=== PATIENT | female | born 1945 | race Caucasian/White ===

== ENCOUNTER 2022-12-16 00:30 | Emergency (ER) | payer MEDICARE, OTHER, SELFPAY ==
[2022-12-16 00:44] VITALS: BP 133/78; PULSE 87; RESP 18; TEMP 38.2; O2SAT 98; BMI 21.0
--- NOTE | 2022-12-16 00:53 | DI.RAD.S_ITS ---
PROCEDURE: XR HAND LT MIN 3V INDICATIONS: Fall; Possible dislocation/fx of Left hand TECHNIQUE: 3 views of the hand(s) acquired. COMPARISON: None. FINDINGS: Bones: There is a dislocation of the proximal interphalangeal joint of the 3rd finger, with overlapping of the phalanges. There is a potential avulsion fracture seen along the palmar aspect of the distal portion of the proximal phalanx of the 3rd finger. There is a moderately displaced, angulated fracture through the shaft of the 5th metacarpal. Degenerative changes are seen throughout, which are most prominent involving the 1st carpometacarpal joint. Milder degenerative changes are seen elsewhere. Soft tissues: No suspicious soft tissue calcifications. IMPRESSION: 3rd finger dislocation, with an apparent associated avulsion fracture fragment seen. Moderately displaced 5th metacarpal fracture. Dictated by: Julien Pratt M.D. on 12/16/2022 at 0:15 Approved by: Julien Pratt M.D. on 12/16/2022 at 0:16
--- NOTE | 2022-12-16 01:32 | ED_ITS ---
HPI - General Adult General Chief complaint: Extremity Injury, Upper Stated complaint: finger injury Time Seen by Provider: 12/16/22 01:24 Source: patient and family Mode of arrival: Ambulatory History of Present Illness HPI narrative: Patient is a 77-year-old female who is here for evaluation of injuries to her left hand and left finger. This occurred when she slipped and fell while getting out of her trailer. She reports no other injuries from the event. She stated that her left middle finger was very deformed and she pulled on it prior to coming to the ER but is still having discomfort. Related Data Allergies Allergy/AdvReac Type Severity Reaction Status Date / Time No Known Drug Allergies Allergy Verified 12/16/22 00:44 Review of Systems Constitutional Constitutional: Reports system reviewed and no additional complaints, except as documented Musculoskeletal Musculoskeletal: Reports system reviewed and no additional complaints, except as documented Integumentary/Breasts Skin/Breast: Reports system reviewed and no additional complaints, except as documented Neurologic Neurologic: Reports system reviewed and no additional complaints, except as documented Patient History Social History Smoking Status: Never smoker Smoking Status: Never smoker Substance Use Type: does not use Exam Initial Vital Signs Initial Vital Signs: Vital Signs Temperature 100.7 F H 12/16/22 00:44 Pulse Rate 87 12/16/22 00:44 Respiratory Rate 18 12/16/22 00:44 Blood Pressure 133/78 12/16/22 00:44 Pulse Oximetry 98 12/16/22 00:44 Oxygen Delivery Method Room Air 12/16/22 00:44 Cardio Pulses: radial pulses present on the left Skin General: no rashes or lesions noted and elasticity normal Neuro General: patient alert and patient awake Sensory Exam: no sensory deficits noted Extrem Other: Bruising to the dorsum of the left hand on the ulnar aspect. Obvious deformity to the left middle finger PIP joint. Procedures Nerve Block Nerve Block 1: Time out performed: Yes Local Anesthetic: lidocaine 1% Amount of anesthesia used (mL): 3 Side: left Nerve Blocks: digital Procedure Successful: Yes Patient Tolerated Procedure: Well Complications: none Orthopedic Joint Reduction Joint #1: Time Out Performed: Yes Side: left Joint Reduction Location: finger Analgesia: nerve block Technique used: direct manipulation Post-reduction neuro exam: intact Post-reduction vascular: intact Post Reduction X-Ray Obtained: Yes Post Reduction X-Ray Results: reduced Splint Applied: Yes Patient Tolerated Procedure: Well Orthopedic Splinting/Casting Injury #1: Side: left Upper Extremity Injury Location: hand and finger Upper Extremity Immobilizer: ulnar gutter Post splinting neuro exam: intact Post splinting vascular exam: intact Placed by: Provider Course Orders Ordered: ED Orders 12/16/22 00:53 XR hand LT min 3V Stat 12/16/22 01:42 XR hand LT min 3V Stat Vital Signs Vital signs: Vital Signs - 8 hr 12/16/22 00:44 Temperature 100.7 F H Pulse Rate 87 Respiratory Rate 18 Blood Pressure 133/78 Pulse Oximetry 98 Oxygen Delivery Method Room Air Medical Decision Making Imaging Data post reduction: Radiologist's Impression: PROCEDURE:? XR HAND LT MIN 3V ? INDICATIONS:? reduction L middle PIP dislocation ? TECHNIQUE:? 3 views of the hand(s) acquired.? ? COMPARISON:? [facility], CR, XR HAND LT MIN 3V, 12/16/2022, 0:55. ? FINDINGS:? ? Bones:? The proximal interphalangeal joint dislocation of the 3rd finger has now been relocated.? Along the dorsal aspect the distal portion of the proximal portion of the distal phalanx, there is a 1 mm avulsion fracture fragment seen. ? There is again seen a moderately displaced fracture of the 5th metacarpal shaft. ? Degenerative changes are seen throughout, which are most prominent involving the 1st carpometacarpal joint.? Milder degenerative changes are seen elsewhere.? ? Soft tissues:? Soft tissue swelling is seen. ? ? IMPRESSION:? 3rd finger relocation, with a 1 mm avulsion fracture fragment seen.? ? Stable moderately displaced fracture of the 5th metacarpal. Extremity x-ray #2: Radiologist's Impression: PROCEDURE:? XR HAND LT MIN 3V ? INDICATIONS:? Fall; Possible dislocation/fx of Left hand ? TECHNIQUE:? 3 views of the hand(s) acquired.? ? COMPARISON:? None. ? FINDINGS:? ? Bones:? There is a dislocation of the proximal interphalangeal joint of the 3rd finger, with overlapping of the phalanges.? There is a potential avulsion fracture seen along the palmar aspect of the distal portion of the proximal phalanx of the 3rd finger. ? There is a moderately displaced, angulated fracture through the shaft of the 5th metacarpal. ? Degenerative changes are seen throughout, which are most prominent involving the 1st carpometacarpal joint.? Milder degenerative changes are seen elsewhere.? ? Soft tissues:? No suspicious soft tissue calcifications.? ? ? IMPRESSION:? 3rd finger dislocation, with an apparent associated avulsion fracture fragment seen. ? Moderately displaced 5th metacarpal fracture. MDM Narrative Medical decision making narrative: According to the patient this was a mechanical fall. She has a dislocation of the PIP joint of the left middle finger. This was reduced as described above. She also has a fracture of the left 5th metacarpal. She was placed in an ulnar gutter splint. She was given care instructions and return precautions. She expressed understanding and agreement. Discharge Plan Departure Patient Disposition: Home Clinical Impression: Fracture of fifth metacarpal bone, Dislocation of finger Instructions: DI for a Hand Fracture, How to Take Care of Your Splint Activity Restrictions/Additional Instructions: The splint that was placed this evening does need to be treated like a cast. You need to keep it on and keep it clean and keep it dry. Contact the orthopedic providers of the number provided below for a follow-up next week. Return to the emergency department for new or worsening symptoms. Referrals: Boni Michelle MD [Physician] - Stand Alone Forms: Patient Portal/API
--- NOTE | 2022-12-16 01:42 | DI.RAD.S_ITS ---
PROCEDURE: XR HAND LT MIN 3V INDICATIONS: reduction L middle PIP dislocation TECHNIQUE: 3 views of the hand(s) acquired. COMPARISON: [facility], CR, XR HAND LT MIN 3V, 12/16/2022, 0:55. FINDINGS: Bones: The proximal interphalangeal joint dislocation of the 3rd finger has now been relocated. Along the dorsal aspect the distal portion of the proximal portion of the distal phalanx, there is a 1 mm avulsion fracture fragment seen. There is again seen a moderately displaced fracture of the 5th metacarpal shaft. Degenerative changes are seen throughout, which are most prominent involving the 1st carpometacarpal joint. Milder degenerative changes are seen elsewhere. Soft tissues: Soft tissue swelling is seen. IMPRESSION: 3rd finger relocation, with a 1 mm avulsion fracture fragment seen. Stable moderately displaced fracture of the 5th metacarpal. Dictated by: Julien Pratt M.D. on 12/16/2022 at 1:13 Approved by: Julien Pratt M.D. on 12/16/2022 at 1:14
--- NOTE | 2022-12-16 02:50 | PC.NURSE ---
Patient states she fell going up the stairs on her RV and landed on her Left hand; she reports that her middle finger looked like it was dislocated and she popped it back in but it still appears swollen; there is also notable bruising and swelling around her 5th metacarpal.
== END 2022-12-16 02:53 | disposition home or self-care (01) ==
PROVIDERS: Emergency Provider Emergency Medicine
DX: S62.307A Unspecified fracture of fifth metacarpal bone, left hand, initial encounter for closed fracture (principal); S63.283A Dislocation of proximal interphalangeal joint of left middle finger, initial encounter; W01.0XXA Fall on same level from slipping, tripping and stumbling without subsequent striking against object, initial encounter
CPT/HCPCS: 26770; 73130; 99281; 99284